=== PATIENT | female | born 1995 ===

== ENCOUNTER 2025-02-12 08:33 | Outpatient (CLI) | payer OTHER | END 2025-02-12 08:36 | disposition home or self-care (01) | LOC: PRENATAL 08:33 | PROVIDERS: ATTEND Obstetrics & Gynecology Maternal & Fetal Medicine | DX: O26.849 Uterine size-date discrepancy, unspecified trimester (principal); O34.219 Maternal care for unspecified type scar from previous cesarean delivery; Z36.0 Encounter for antenatal screening for chromosomal anomalies; Z14.8 Genetic carrier of other disease; Z3A.16 16 weeks gestation of pregnancy ==

== ENCOUNTER → 2025-03-18 08:18 | Outpatient (CLI) | payer OTHER | END | disposition home or self-care (01) | LOC: PRENATAL 08:18 | PROVIDERS: ATTEND Obstetrics & Gynecology Maternal & Fetal Medicine | DX: O44.00 Complete placenta previa NOS or without hemorrhage, unspecified trimester (principal); O34.219 Maternal care for unspecified type scar from previous cesarean delivery; O99.019 Anemia complicating pregnancy, unspecified trimester; Z3A.20 20 weeks gestation of pregnancy ==

== ENCOUNTER → 2025-05-13 10:49 | Outpatient (CLI) | payer OTHER | END | disposition home or self-care (01) | LOC: PRENATAL 10:49 | PROVIDERS: ATTEND Obstetrics & Gynecology Maternal & Fetal Medicine | DX: O26.849 Uterine size-date discrepancy, unspecified trimester (principal); O36.8199 Decreased fetal movements, unspecified trimester, other fetus; O34.219 Maternal care for unspecified type scar from previous cesarean delivery; O99.019 Anemia complicating pregnancy, unspecified trimester; Z3A.29 29 weeks gestation of pregnancy ==

== ENCOUNTER 2025-07-17 09:39 | Inpatient (IN) | payer OTHER ==
[~2025-07-17] VITALS: Ht 149.9 cm; Wt 3.2 kg
[2025-07-17] MEDS ORDERED: CVS DAILY MULT1 EAC2 PO (09:43)
[2025-07-17 09:46] LABS: BASO % 0.2 % (0.1-1.2); EOS # 0.04 (0.04-0.54); EOS % 0.7 % (0.7-7.0); LYMPH # 1.67 (1.18-3.74); LYMPH % 29.8 % (19.3-53.1); MEAN PLATELET VOLUME 12.20 fl (9.4-12.4); MONO # 0.49 (0.24-0.82); MONO % 8.7 % (4.7-12.5); NEUT # 3.38 (1.56-6.13); NEUT % 60.2 % (34.0-71.1); RED CELL DISTRIBUTION WIDTH 15.7 % (11.6-14.4)
[2025-07-17 10:03] LABS: INR < 0.93
[2025-07-17 10:05] LABS: URINE EPITHELIAL CELLS 118.2 uL (0.0-38.8); URINE RBC 2.0 uL (0.0-20.8); URINE WBC 7.5 uL (0.0-23.2)
[2025-07-17 10:18] LABS: ALT/SGPT 13.0 U/L (12-78); AST/SGOT 11.0 U/L (15-37); BILIRUBIN TOTAL 0.23 mg/dL (0.3-1.2); BUN CREA RATIO 13.0 (7.0-25.0); CREATININE SERUM 0.54 mg/dL (0.55-1.02); GFR 132.56; GLOBULINA 3.8 G/DL (2.4-3.5); GLUCOSE FASTING 80.0 mg/dL (65-100); OSMOLALITY SERUM 276.0 MOSM/KG (275-295); URINE APPEARANCE Clear; URINE BILIRRUBIN Negative (NEGATIVE); URINE BLOOD Negative; URINE COLOR Dark Yellow; URINE GLUCOSE Negative (NEGATIVE); URINE KETONE Trace (NEGATIVE); URINE LEUKOCYTE Negative; URINE NITRATE Negative; URINE PROTEIN Trace (NEGATIVE); URINE UROBILINOGEN 0.2 E.U./dl
[2025-07-17 11:08] LABS: URINE BACTERIA > 9821.5 uL (0.0-1933); URINE CAST 0.00 uL (0.0-1.40)
[2025-07-30 15:02] VITALS: BP 104/68; O2SAT 100
[2025-07-30] MEDS ORDERED: PRENATA CHEWAB1 EACH PO (15:38)
[2025-07-30] MEDS ORDERED: RINGERS SOLUTION,LACTATED 1,000 ML IV SCH (16:00)
[2025-07-30 18:38] VITALS: BP 113/76
[2025-07-30 23:12] VITALS: BP 101/65; O2SAT 100
[2025-07-31 02:05] VITALS: BP 100/66
[2025-07-31 07:04] VITALS: BP 105/70
[2025-07-31 07:05] VITALS: BP 105/70; O2SAT 98
[2025-07-31 07:34] LABS: BASO % 0.3 % (0.1-1.2); EOS # 0.07 (0.04-0.54); EOS % 1.2 % (0.7-7.0); LYMPH # 1.50 (1.18-3.74); LYMPH % 25.0 % (19.3-53.1); MEAN PLATELET VOLUME 11.60 fl (9.4-12.4); MONO # 0.59 (0.24-0.82); MONO % 9.8 % (4.7-12.5); NEUT # 3.77 (1.56-6.13); NEUT % 63.0 % (34.0-71.1)
[2025-07-31 07:40] LABS: RED CELL DISTRIBUTION WIDTH 23.2 % (11.6-14.4)
[2025-07-31] MEDS ORDERED: OXYTOCIN 10 UNITS/ML VIAL ONE ×2 (07:43→16:17)
[2025-07-31] MEDS ORDERED: ERYTHROMYCIN BASE OPHT 1GM EACH TUBE OP ONE (07:44)
[2025-07-31] MEDS ORDERED: CHLORHEXIDINE GLUCONATE 120 ML BOTTLE TOP ONE (08:09)
[2025-07-31] MEDS ORDERED: CEFAZOLIN SODIUM 1,000 MG VIAL ONE (08:14)
[2025-07-31] MEDS ORDERED: MORPHINE SULFATE 4 MG/ML CARTRIDGE IV PRN (10:15)
[2025-07-31] MEDS ORDERED: RINGERS SOLUTION,LACTATED 1,000 ML IV SCH (10:45)
[2025-07-31] MEDS ORDERED: OXYTOCIN 1,000 ML IV SCH (10:45)
[2025-07-31] MEDS ORDERED: MORPHINE SULFATE 4 MG/ML VIAL IV ONE (11:40)
[2025-07-31] MEDS ORDERED: SIMETHICONE 125 MG CAPSULE PO SCH (13:00)
[2025-07-31 15:35] LABS: BASO % 0.1 % (0.1-1.2); EOS # 0.00 (0.04-0.54); EOS % 0.0 % (0.7-7.0); LYMPH # 0.70 (1.18-3.74); LYMPH % 6.4 % (19.3-53.1); MEAN PLATELET VOLUME 11.50 fl (9.4-12.4); MONO # 0.67 (0.24-0.82); MONO % 6.1 % (4.7-12.5); NEUT # 9.51 (1.56-6.13); NEUT % 87.0 % (34.0-71.1); RED CELL DISTRIBUTION WIDTH 23.1 % (11.6-14.4)
[2025-07-31] MEDS ORDERED: GABAPENTIN 300 MG CAPSULE PO ONE (16:17)
[2025-07-31] MEDS ORDERED: SIMETHICONE 125 MG CAPSULE PO ONE (16:17)
[2025-07-31] MEDS ORDERED: DOCUSATE SODIUM 100MG CAP PO SCH (17:00)
[2025-07-31] MEDS ORDERED: GABAPENTIN 300 MG CAPSULE PO SCH (17:00)
[2025-07-31 17:12] VITALS: BP 113/76
[2025-08-01] VITALS: BP 105/63
[2025-08-01 08:59] VITALS: BP 105/70
[2025-08-01 21:34] VITALS: BP 99/63
[2025-08-02] VITALS: BP 101/67
[2025-08-02 09:23] VITALS: BP 95/60
[2025-08-02 16:00] VITALS: BP 108/74
[2025-08-03] VITALS: BP 95/63
[2025-08-03 07:44] VITALS: BP 99/66
== END 2025-08-03 15:49 | disposition home or self-care (01) | DRG 785 ==
LOC: O/R 07-30 15:27 → LDR 07-30 15:27 → O/R 07-31 08:12 → OB/GYN 07-31 09:08
PROVIDERS: ADMIT Obstetrics & Gynecology; ATTEND Obstetrics & Gynecology
PROC: 10D00Z1 Extraction of Products of Conception, Low, Open Approach (ICD-10-PCS; principal; 2025-07-30)
PROC: 0UB70ZZ Excision of Bilateral Fallopian Tubes, Open Approach (ICD-10-PCS; 2025-07-30)
PROC: 4A1HXCZ Monitoring of Products of Conception, Cardiac Rate, External Approach (ICD-10-PCS; 2025-07-30)
PROC: 30233N1 Transfusion of Nonautologous Red Blood Cells into Peripheral Vein, Percutaneous Approach (ICD-10-PCS; 2025-07-30)
DX: O34.211 Maternal care for low transverse scar from previous cesarean delivery (principal); D64.9 Anemia, unspecified; O99.02 Anemia complicating childbirth; Z3A.39 39 weeks gestation of pregnancy; Z37.0 Single live birth; Z30.2 Encounter for sterilization